=== PATIENT | male | born 1940 | race Caucasian/White ===

== ENCOUNTER 2019-08-27 10:31 | Outpatient (CLI) | payer MEDICARE, BC ==
--- NOTE | 2019-08-27 12:44 | CT ---
CT Brain WO Con: 08/27/2019 12:00 AM CLINICAL HISTORY: History of subdural hematoma. IMAGING TECHNIQUE: Multiple CT images were obtained of the brain without IV contrast. COMPARISON: MRI of the brain dated August 06, [address] the brain dated August 05, 2019 both from [facility] FINDINGS: Brain: No acute infarct or hemorrhage is evident. No midline shift. 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 Ventricles: Normal. No hydrocephalus.. Skull: Intact.. Visualized Paranasal sinuses: There is stable mucosal thickening within the left maxillary sinus. The re is a mucus retention cyst within the right maxillary sinus.. Mastoid air cells:Clear. Extracranial soft tissues:Normal. IMPRESSION: No acute intracranial abnormality. 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 This is better assessed on the MR the brain dated August 06, 2019.
== END 2019-08-27 10:32 | disposition home or self-care (01) ==
LOC: SCSCT 10:31
PROVIDERS: ATTEND Neurological Surgery
DX: I62.00 Nontraumatic subdural hemorrhage, unspecified (principal)
CPT/HCPCS: 70450

== ENCOUNTER 2020-07-09 19:00 | Outpatient (CLI) | payer MEDICARE, BC | END 2020-07-09 19:01 | disposition home or self-care (01) | LOC: SLEEPLAB 19:00 | PROVIDERS: ATTEND Psychiatry & Neurology Neurology | DX: G47.33 Obstructive sleep apnea (adult) (pediatric) (principal); R06.83 Snoring; G47.10 Hypersomnia, unspecified; G47.00 Insomnia, unspecified; F32.9 Major depressive disorder, single episode, unspecified; R41.3 Other amnesia; R35.1 Nocturia | CPT/HCPCS: 95810 ==

== ENCOUNTER 2020-07-16 19:00 | Outpatient (CLI) | payer MEDICARE, BC | END 2020-07-16 19:01 | disposition home or self-care (01) | LOC: SLEEPLAB 19:00 | PROVIDERS: ATTEND Psychiatry & Neurology Neurology | DX: G47.33 Obstructive sleep apnea (adult) (pediatric) (principal); R06.83 Snoring; G47.10 Hypersomnia, unspecified; E66.9 Obesity, unspecified; Z68.22 Body mass index [BMI] 22.0-22.9, adult | CPT/HCPCS: 95811 ==

== ENCOUNTER 2023-07-30 05:37 | Observation (INO) | payer MEDICARE, BC ==
[2023-07-30] MEDS ORDERED: Bisacodyl 5 MG TAB PO PRN (07:24)
[2023-07-30] MEDS ORDERED: Bisacodyl 10 MG SUPP PR PRN (07:24)
[2023-07-30] MEDS ORDERED: Ondansetron PF 4 MG/2 ML Vial IVP PRN (07:24)
[2023-07-30] MEDS ORDERED: Senokot S 8.6-50 MG TAB PO PRN (07:24)
[2023-07-30 08:14] LABS: Hemoglobin A1c 5.7 % (4.0-6.0)
[2023-07-30 08:32] LABS: Cardiac Risk 3.2 (Less than 4.5)
[2023-07-30 08:38] LABS: Troponin I Less than 0.010 ng/mL (< 0.028)
[2023-07-30 09:36] VITALS: BMI 22.1
[2023-07-30] MEDS: Sodium Chloride 0.9% 1,000 ML IV SCH ×2 (09:39→23:22)
[2023-07-30] MEDS: Aspirin Chewable 81 MG TAB PO SCH (09:55)
[2023-07-30 11:07] LABS: Troponin I Less than 0.010 ng/mL (< 0.028)
[2023-07-30] MEDS ORDERED: Regadenoson 0.4 MG/5 ML SYRINGE ONE (16:14)
[2023-07-30] MEDS: Atorvastatin Calcium 40 MG TAB PO SCH (21:39)
[2023-07-31 04:43] LABS: #Neutrophils 4.4 thou/uL (1.40-6.50); %Basophils 0.5 % (0.0-1.0); %Eosinophils 0.3 % (0.0-10.0); %Lymphocytes 17.8 % (21.0-51.0); %Monocytes 14.6 % (0.0-10.0); %Neutrophils 66.5 % (42.0-75.0); Hematocrit 36.9 % (42.0-52.0); Hemoglobin 12.1 g/dL (14.0-18.0); Mean Corpuscular HGB CONC 32.8 g/dL (32.0-36.0); Mean Corpuscular Hemoglobin 28.3 pg (27.0-31.0); Mean Corpuscular Volume 86.4 fl (78.0-98.0); Mean Platelet Volume 11.1 fL (7.4-10.4); Platelet Count 147 10x3/uL (130-400); RBC Distribution Width 12.7 % (11.5-14.5); Red Blood Cell (RBC) Count 4.27 mill/uL (4.70-6.10); White Blood Cell (WBC) Count 6.6 10x3/uL (4.8-10.8)
[2023-07-31 05:07] LABS: Anion Gap 14 mmol/L (10-20); BUN (Urea Nitrogen) 13 mg/dL (8.4-25.7); Calc. Creatinine Clearance 48 mL/min (70-130); Calcium 8.1 mg/dL (7.8-10.44); Carbon Dioxide 20 mmol/L (23-31); Chloride 107 mmol/L (98-107); Estimated GFR 67; Glucose 83 mg/dL (83-110); Iron 12 ug/dL (65-175); Iron 14 ug/dL (65-175); Iron Binding Capacity, Total 156 mcg/dL (261-462); Magnesium 1.7 mg/dL (1.6-2.6); Potassium 3.9 mmol/L (3.5-5.1); Sodium 137 mmol/L (136-145)
[2023-07-31] MEDS: Sodium Chloride 0.9% 1,000 ML IV SCH ×2 (09:20→13:31)
[2023-07-31] MEDS: Aspirin Chewable 81 MG TAB PO SCH (09:21)
[2023-07-31] MEDS ORDERED: Sodium Chloride 0.9% 1,000 ML IV SCH (12:00)
[2023-07-31] MEDS ORDERED: Loperamide HCl 2 MG CAP PO PRN (17:26)
[2023-07-31] MEDS: Atorvastatin Calcium 40 MG TAB PO SCH (20:59)
[2023-07-31] MEDS ORDERED: QUEtiapine 25 MG TAB PO SCH (21:00)
[2023-08-01 02:20] VITALS: TEMP 97.8
[2023-08-01] MEDS: Sodium Chloride 0.9% 1,000 ML IV SCH (03:30)
[2023-08-01] MEDS: Benzocaine/Menthol 1 LOZ LOZ PO PRN ×2 (04:56→09:20)
[2023-08-01 05:04] LABS: #Eosinphils 0.1 thou/uL (0.0-0.7); #Monocytes 0.7 thou/uL (0.11-0.59); #Neutrophils 2.8 thou/uL (1.40-6.50); %Basophils 0.4 % (0.0-1.0); %Eosinophils 2.6 % (0.0-10.0); %Lymphocytes 31.8 % (21.0-51.0); %Monocytes 13.2 % (0.0-10.0); %Neutrophils 51.6 % (42.0-75.0); Hematocrit 34.9 % (42.0-52.0); Hemoglobin 11.6 g/dL (14.0-18.0); Mean Corpuscular HGB CONC 33.2 g/dL (32.0-36.0); Mean Corpuscular Hemoglobin 28.5 pg (27.0-31.0); Mean Corpuscular Volume 85.7 fl (78.0-98.0); Mean Platelet Volume 10.9 fL (7.4-10.4); Platelet Count 131 10x3/uL (130-400); RBC Distribution Width 12.8 % (11.5-14.5); Red Blood Cell (RBC) Count 4.07 mill/uL (4.70-6.10); White Blood Cell (WBC) Count 5.4 10x3/uL (4.8-10.8)
[2023-08-01 05:33] LABS: Anion Gap 13 mmol/L (10-20); BUN (Urea Nitrogen) 14 mg/dL (8.4-25.7); Calc. Creatinine Clearance 52 mL/min (70-130); Calcium 8.2 mg/dL (7.8-10.44); Carbon Dioxide 18 mmol/L (23-31); Chloride 111 mmol/L (98-107); Estimated GFR 75; Glucose 70 mg/dL (83-110); Magnesium 1.7 mg/dL (1.6-2.6); Potassium 3.8 mmol/L (3.5-5.1); Sodium 138 mmol/L (136-145)
[2023-08-01] MEDS ORDERED: Aspirin Chewable 81 MG TAB PO SCH (09:00)
[2023-08-01] MEDS ORDERED: Finasteride 5 MG TAB PO SCH (09:00)
[2023-08-01 11:05] VITALS: BP 126/58
== END 2023-08-01 11:10 | disposition home or self-care (01) ==
LOC: 2NO 06:45
PROVIDERS: ADMIT Student in an Organized Health Care Education/Training Program; ATTEND Internal Medicine
DX: R55 Syncope and collapse (principal); J45.909 Unspecified asthma, uncomplicated; G62.9 Polyneuropathy, unspecified; E78.5 Hyperlipidemia, unspecified; M51.26 Other intervertebral disc displacement, lumbar region; G93.41 Metabolic encephalopathy; I65.23 Occlusion and stenosis of bilateral carotid arteries; R41.3 Other amnesia; D64.9 Anemia, unspecified; Z88.5 Allergy status to narcotic agent; Z90.49 Acquired absence of other specified parts of digestive tract; Z90.89 Acquired absence of other organs; Z98.890 Other specified postprocedural states; Z79.899 Other long term (current) drug therapy
CPT/HCPCS: 78452; 80048 ×2; 80061; 82607; 82728; 83036; 83540; 83550; 83735 ×2; 84443; 84484 ×2; 85025 ×2; 85046; 93017; 93306; 94760 ×2; 97116 ×2; 97530; A9502; G0378 ×3; J2785; 36415; A9500; J7050